=== PATIENT | female | born 1940 | race Caucasian/White ===

== ENCOUNTER 2018-05-14 14:39 | Emergency (ER) | payer OTHER ==
[~2018-05-14] VITALS: Ht 162.6 cm; Wt 79.4 kg
[2018-05-14] MEDS ORDERED: AVALIDE 300-121 EACH (15:10)
== END 2018-05-14 23:24 | disposition home or self-care (01) ==
LOC: ER 14:39
DX: K57.30 Diverticulosis of large intestine without perforation or abscess without bleeding (principal); K58.8 Other irritable bowel syndrome

== ENCOUNTER 2022-02-04 08:12 | Outpatient (CLI) | payer OTHER ==
[~2022-02-04 08:12] MED LIST: AVALIDE 300-121 EACH
== END 2022-02-04 08:16 | disposition home or self-care (01) ==
LOC: RX STUDY 08:12
PROVIDERS: ATTEND Internal Medicine Gastroenterology
DX: R13.0 Aphagia (principal); K21.9 Gastro-esophageal reflux disease without esophagitis